=== PATIENT | male | born 1945 ===

== ENCOUNTER → 2018-03-01 | Outpatient (CLI) | payer MEDICARE, SELFPAY ==
[2018-03-05 05:50] LABS: A/G RATIO 0.9 (0.7-1.7); ALBUMIN 3.6 g/dL (2.9-4.4); ALPHA-1-GLOBULIN 0.2 g/dL (0.0-0.4); ALPHA-2-GLOBULIN 0.9 g/dL (0.4-1.0); BETA GLOBULIN 1.3 g/dL (0.7-1.3); GAMMA GLOBULIN 1.7 g/dL (0.4-1.8); GLOBULIN, TOTAL 4.1 g/dL (2.2-3.9); IMMUNOGLOBULIN A, QN, SERUM 954 mg/dL (61-437); IMMUNOGLOBULIN G, QN, SERUM 3663 mg/dL (700-1600); IMMUNOGLOBULIN M, QN, SERUM 216 mg/dL (15-143); PROTEIN, TOTAL, SERUM 7.7 g/dL (6.0-8.5)
== END | disposition home or self-care (01) ==
LOC: LAB SHORT 12:32 → LAB 12:32
PROVIDERS: Internal Medicine Hematology & Oncology
DX: D47.2 Monoclonal gammopathy (principal)
CPT/HCPCS: 84165

== ENCOUNTER 2018-07-08 13:28 | Day surgery (SDC) | payer MEDICARE ==
[~2018-07-08] VITALS: Ht 170.2 cm; Wt 69.2 kg
[~2018-07-08 13:28] MED LIST: ALBU90OI61 INH; ATOR10 PO; BREO ELLIPTA 11 EACH INH; CENTRUM SILVER1 EAC4 PO; Coq-10100 MG PO; DICL75ER PO; Metamucil0.52 GM PO; Omeprazole20 M1 PO; Travatan Z5 ML BOTHEYES
== END 2018-07-08 15:20 | disposition home or self-care (01) ==
LOC: ORSCSDS 13:28
PROVIDERS: Surgery
PROC: 0DJD8ZZ Inspection of Lower Intestinal Tract, Via Natural or Artificial Opening Endoscopic (ICD-10-PCS; principal; 2018-07-08 14:45)
DX: Z12.11 Encounter for screening for malignant neoplasm of colon (principal); Z86.010 Personal history of colon polyps; K57.30 Diverticulosis of large intestine without perforation or abscess without bleeding; J44.9 Chronic obstructive pulmonary disease, unspecified; K21.9 Gastro-esophageal reflux disease without esophagitis; E78.5 Hyperlipidemia, unspecified; Z87.891 Personal history of nicotine dependence; Z79.899 Other long term (current) drug therapy
CPT/HCPCS: J0330; J2405; J7120

== ENCOUNTER → 2020-12-18 | Outpatient (CLI) | payer OTHER | END | disposition home or self-care (01) | LOC: LAB SHORT 11:03 → LAB 11:03 | DX: L30.8 Other specified dermatitis (principal) | CPT/HCPCS: 88305; 88312 ==